=== PATIENT | male | born 1985 | race Caucasian/White ===

== ENCOUNTER 2020-11-11 18:19 | Observation (INO) | payer BC ==
[~2020-11-11] VITALS: Ht 185.4 cm; Wt 93.2 kg
[2020-11-11 19:09] LABS: COLLECTION METHOD CLEAN CATCH
[2020-11-11 19:11] LABS: BASO % 0.3 % (0.0-2.0); EOS # 0.1 (0.0-0.7); EOS % 0.6 % (0-4.0); GRAN # 7.2 (1.4-6.5); GRAN % 73.3 % (42.2-75.2); HEMATOCRIT 42.3 % (42.0-52.0); LYMPH # 1.8 (1.2-3.4); LYMPH % 18.2 % (20.0-51.0); MEAN CELL VOLUME 89 fl (80.0-100.0); MEAN CORPUSCULAR HEMOGLOBIN 31 pg (27.0-31.0); MEAN CORPUSCULAR HGB CONC 36 g/dl (33.0-37.0); MEAN PLATELET VOLUME 10.8 fl (7.4-10.4); MONO # 0.7 (0.1-0.6); MONO % 7.3 % (1.7-9.3); PLATELET COUNT 228 K/mm3 (130-400); RED BLOOD COUNT 4.78 M/mm3 (4.20-5.60); REDCELL DISTRIBUTION WIDTH-CV 11.9 % (11.5-14.5)
[2020-11-11 19:15] LABS: MUCOUS Present /lpf; PH 7 (5-8); SQUAMOUS EPITHELIAL None Seen /hpf; URINE APPEARANCE Clear; URINE BACTERIA None Seen /hpf; URINE BILIRUBIN Negative (NEGATIVE); URINE BLOOD Negative (NEGATIVE); URINE COLOR Straw; URINE GLUCOSE Negative (NEGATIVE); URINE KETONE Negative (NEGATIVE); URINE LEUKOCYTE ESTERASE Trace (NEGATIVE); URINE NITRATE Negative (NEGATIVE); URINE PROTEIN(semi-quant) Negative (NEGATIVE); URINE RBC 0-2 /hpf; URINE UROBILINOGEN Negative (NEGATIVE)
[2020-11-11 19:16] LABS: ALBUMIN 4.9 gm/dL (3.5-5.0); BILIRUBIN,TOTAL 0.8 mg/dL (0.0-1.0); C-REACTIVE PROTEIN 1.1 mg/dL (0.0-0.9); CALCIUM 9.6 mg/dL (8.4-10.2); CREATININE, serum 0.89 (0.66-1.25); POTASSIUM 3.9 mmol/L (3.4-5.0); TOTAL PROTEIN 8.6 gm/dL (6.4-8.2)
[2020-11-12] VITALS (9 sets, daily range): BP systolic 115–127; BP diastolic 67–88; PULSE 67–81; TEMP 98.1–98.5
--- NOTE | 2020-11-12 00:48 | NUR ---
Pt has came for RLQ pain rated 4/10 but refused pain meds. VVS. Pt is NPO for surgery today. IV fluid was stated. Will continue to monitor.
--- NOTE | 2020-11-12 08:00 | NUR ---
Patient sitting up in bed. Alert and oriented x 3. Assessment complete. Denies pain at this time. Fluids infusing per orders. Denies further needs at this time.
--- NOTE | 2020-11-12 09:20 | NUR ---
Patient showered independently.
--- NOTE | 2020-11-12 10:05 | NUR ---
Patient to OR by bed. No further needs at this time.
[2020-11-12] MEDS ORDERED: ULTRAM 50MG TAB50 MG PO (11:23)
--- NOTE | 2020-11-12 12:10 | NUR ---
Patient up from OR. Alert and oriented x 3. Lap sites x 3 with edges well approximated. Post op fluids and post op VSS. Denies needs at this time. Spouse at bedside.
--- NOTE | 2020-11-12 13:20 | NUR ---
Initial visit; Patient thanked Breaster for looking in on him and offering God's blessings.
--- NOTE | 2020-11-12 14:10 | NUR ---
Discharge education provided to patient and spouse. Patient up ambulating in room independently, has been up to void, tolerating diet without difficulties. Patient states soreness to abdomen. Educated on signs and symptoms of infection. Educated on new medications and when to call provider. All questions answered. INT discontinued catheter tip intact. Denies further needs at this time.
== END 2020-11-12 14:20 | disposition home or self-care (01) ==
LOC: COL.ER 18:19 → SURG 20:43
PROVIDERS: Nurse Practitioner; ADMIT Surgery
DX: K35.80 Unspecified acute appendicitis (principal); F17.220 Nicotine dependence, chewing tobacco, uncomplicated
CPT/HCPCS: G0378; J1100; J1885; J2405; J2543; J2704; J3010; J7030; Q9967